=== PATIENT | female | born 1980 | race Caucasian/White ===

== ENCOUNTER → 2020-05-18 11:54 | Outpatient (CLI) | payer OTHER, SELFPAY ==
[2020-05-18 15:13] LABS: Erythrocyte Sedimentation Rate 5 mm/hr (0-20)
[2020-05-18 15:14] LABS: Absolute Lymphocyte Count 2.32 X10^3/uL (0.83-4.51); Absolute Neutrophil Count 3.4 X10^3/uL (2.0-7.7); Basophil# 0.03 X10^3/uL; Basophil% 0.5 % (0-1); Eosinophil# 0.09 X10^3/uL; Eosinophils% 1.4 % (0-5); Hematocrit 41.9 % (37-47); Hemoglobin 14.4 g/dL (12.0-15.0); Lymphocyte # 2.32 X10^3/ul (4.0); Lymphocyte % 37.3 % (19-41); Mean Corp Hgb Conc 34.4 g/dL (32-36); Mean Corpuscular Hgb 29.9 pg (27.0-32.0); Mean Corpuscular Volume 87.1 fL (81-99); Mean Platelet Vol. 10.4 fl (6.2-12.0); Monocyte# 0.39 X10^3/uL; Monocyte% 6.3 % (0-10); NRBC Flagged by Analyzer 0 % (0-5); Neutrophil # 3.37 X10^3/uL (2.7-7.7); Neutrophil % 54.2 % (47-70); Platelet Count 318 K/mm3 (150-450); RBC Distribution Width SD 38.1 fl (35.1-43.9); Red Blood Count 4.81 M/mm3 (4.2-5.4); White Blood Count 6.2 K/mm3 (4.4-11.0)
[2020-05-18 15:23] LABS: CRP < 2.90 mg/L (0.0-3.0)
[2020-05-20 16:56] LABS: EBV Acute VCA IgM < 36.0 U/mL (0.0-35.9); EBV Nuclear Antigen IgG 22.4 U/mL (0.0-17.9); EBV-VCA IgG > 600.0 U/mL (0.0-17.9)
== END ==
PROVIDERS: Family Provider Family Medicine; PCP Family Medicine; Visit Provider Family Medicine
DX: Z00.00 Encounter for general adult medical examination without abnormal findings (principal); R53.83 Other fatigue; J02.9 Acute pharyngitis, unspecified; Z82.49 Family history of ischemic heart disease and other diseases of the circulatory system
CPT/HCPCS: 36415; 85025; 85652; 86140; 86664; 86665

== ENCOUNTER → 2020-06-12 12:23 | Outpatient (CLI) | payer OTHER, SELFPAY ==
--- NOTE | 2020-06-12 12:26 | US_ITS ---
STUDY: THYROID ULTRASOUND REASON FOR EXAM: Female, 39 years old. Soreness of throat, globulus sensation TECHNIQUE: Ultrasound evaluation of the thyroid was performed with real-time and static weaver-scale imaging. COMPARISON: None. FINDINGS: RIGHT LOBE: The right lobe of the thyroid gland measures 6.5 x 1.9 x 2.0 cm. There is a homogeneous echotexture. There is a fairly well-defined 6 x 4 x 3 mm hypoechoic solid nodule in the posterolateral mid pole. A few other very small, generally well-defined hypoechoic foci are also noted within the gland, some of which may be vascular channels. LEFT LOBE: The left lobe of the thyroid gland measures 6.5 x 1.8 x 1.3 cm. There is a homogeneous echotexture. There are a few well-defined small hypoechoic lesions. One of the largest is near the junction to the thyroid isthmus, measuring 4 x 5 x 2 mm. This has an eccentric focal area of mild hyperechogenicity. ISTHMUS: The isthmus measures 3 mm. The regional lymph nodes are normal. US/Thyroid IMPRESSION: Elongated thyroid gland with occasional small hypoechoic lesions in each lobe, the larger measuring above. The largest in the right lobe satisfies criteria for a TIRADS 4 lesion (moderately suspicious and processes. However, due to its small size, a 6-12 month follow-up is advised to document stability. Electronically Signed: Adriel Shields MD at 16:02 EDT , Service support ,
== END ==
PROVIDERS: PCP Family Medicine; Referring Provider Family Medicine; Visit Provider Family Medicine
DX: R09.89 Other specified symptoms and signs involving the circulatory and respiratory systems (principal); R07.0 Pain in throat
CPT/HCPCS: 76536

== ENCOUNTER → 2020-12-15 08:40 | Outpatient (CLI) | payer OTHER, SELFPAY | PROVIDERS: PCP Family Medicine; Visit Provider Family Medicine | DX: U07.1 COVID-19 (principal) | CPT/HCPCS: 36415; 80053; 80061; 82306; 84432; 84436; 84439; 84443; 84481; 86376; 86769; 86800 ==

== ENCOUNTER 2023-02-06 13:47 | Emergency (ER) | payer OTHER, SELFPAY ==
[2023-02-06 13:49] VITALS: BP 186/92; PULSE 110; RESP 24; TEMP 36.1; O2SAT 100; BMI 25.9
--- NOTE | 2023-02-06 13:59 | EKG12_ITS ---
Test Reason : PALP Blood Pressure : / mmHG Vent. Rate : 112 BPM Atrial Rate : 112 BPM P-R Int : 138 ms QRS Dur : 082 ms QT Int : 344 ms P-R-T Axes : 071 067 026 degrees QTc Int : 469 ms Sinus tachycardia Possible Left atrial enlargement Borderline ECG Confirmed by KAI MILTON ([id number]), image editor TERRY ORDONEZ ([id number]) on 02/08/2023 1:16:41 PM Referred By: AR/CAMERON Confirmed By:KAI MILTON
--- NOTE | 2023-02-06 14:03 | EDS_ITS ---
HPI <BAILEY Pardo - Last Filed: 02/06/23 14:59> History of Present Illness Chief Complaint: General Illness Narrative Narrative: 32-year-old female with past medical history of anxiety states she had a few days of mild congestion. This morning she started to feel lightheaded and tingly all over. She has a dry mouth despite drinking plenty of water. She states on the way here she started to get anxious and had a heart fluttering. No chest pain or shortness of breath. No nausea, vomiting, abdominal pain, or diarrhea. No urinary symptoms. She is on no medications. [facility] <BAILEY Pardo - Last Filed: 02/06/23 14:59> [facility] Medical History (Updated 02/06/23 @ 16:[address] Tuan Christina DO) delivery delivered Home Medications NK 02/06/23 [History Last Taken Unknown] Allergy/AdvReac Type Severity Reaction Status Date / Time No Known Allergies Allergy Verified 02/06/23 14:03 Social History Smoking Status: Never smoker ROS <BAILEY Pardo - Last Filed: 02/06/23 14:59> ROS ED ROS Narrative Constitutional: Negative for fever, chills, malaise. ENT: Positive for rhinorrhea. CVS: Negative for palpitations. Negative for chest pain, syncope. Respiratory: Negative for shortness of breath, cough. GI: Negative for abdominal pain, nausea, vomiting, diarrhea. : Negative for dysuria, frequency. Neuro: Negative for headache, motor/sensory dysfunction. EXAM <BAILEY Pardo Last Filed: 02/06/23 14:59> Physical Exam Narrative Exam Narrative: CONST: Patient sitting in no acute distress. EYES: Normal inspection. ENT: Normal inspection, moist mucous membranes. NECK: Normal inspection. RESP: No respiratory distress, CTAB. CVS: Slightly tachycardic with regular rhythm, no murmur, no gallop. ABD: Soft and nontender, no guarding or rebound, nondistended. SKIN: Color normal, no rash, warm, dry, intact. EXTREMITIES: Normal appearance, no pedal edema. NEURO: Oriented x4. PSYCH: Normal affect. Const Vital Signs: 02/06/23 13:49 02/06/23 14:04 02/06/23 14:05 Temperature 97.0 F L Temperature Source Temporal Pulse Rate 110 H 113 H Respiratory Rate 24 H 16 Respiratory Effort Normal Non-Labored Respiratory Pattern Normal Blood Pressure 186/92 H 146/88 H Blood Pressure Mean 123 107 Pulse Ox 100 99 Oxygen Delivery Method Room Air Room Air 02/06/23 14:06 02/06/23 14:55 02/06/23 15:00 Temperature Temperature Source Pulse Rate 101 H 113 H Respiratory Rate 18 16 Respiratory Effort Normal Non-Labored Respiratory Pattern Blood Pressure 126/90 H 126/90 H Blood Pressure Mean 102 Pulse Ox 99 98 Oxygen Delivery Method Room Air <Dr. Tuan Christina DO - Last Filed: 02/06/23 16:14> Physical Exam Const Vital Signs: 02/06/23 13:49 02/06/23 14:04 02/06/23 14:05 Temperature 97.0 F L Temperature Source Temporal Pulse Rate 110 H 113 H Respiratory Rate 24 H 16 Respiratory Effort Normal Non-Labored Respiratory Pattern Normal Blood Pressure 186/92 H 146/88 H Blood Pressure Mean 123 107 Pulse Ox 100 99 Oxygen Delivery Method Room Air Room Air 02/06/23 14:06 02/06/23 14:55 02/06/23 15:00 Temperature Temperature Source Pulse Rate 101 H 113 H Respiratory Rate 18 16 Respiratory Effort Normal Non-Labored Respiratory Pattern Blood Pressure 126/90 H 126/90 H Blood Pressure Mean 102 Pulse Ox 99 98 Oxygen Delivery Method Room Air MDM <BAILEY Pardo - Last Filed: 02/06/23 14:59> [facility] Narrative Medical decision making narrative: Patient has nonspecific lightheadedness, dry mouth, generalized tingling. She has had recent upper respiratory symptoms. She appears well and nontoxic. Initially she was hypertensive but was rechecked and is 146/88. She is tachycardic around 113. Otherwise normal vital signs. Her medical exam is benign. CBC is within normal limits. BMP shows mild hypokalemia at 3.1 and she was given oral replacement. EKG is sinus tachycardia with no ectopy or ischemic changes. Both D-dimer and troponin are negative. COVID-19 test is negative and I suspect she has another viral upper respiratory infection. After IV fluids patient heart rate is in the 90s. BP 126/90. She is comfortable going home and following up with her primary care doctor but I told her to return for new or worsening symptoms. She was discharged in stable condition. History gathered from: Patient, friend at bedside Differential: Electrolyte abnormality, URI, COVID, arrhythmia, ACS, PE less likely with tachycardia were ruled out Lab Data Attestation: I reviewed the patient's lab results. Labs: Laboratory Results - last 24 hr 02/06/23 02/06/23 02/06/23 13:54 14:10 14:10 WBC 6.1 RBC 4.44 Hgb 13.7 Hct 38.4 MCV 86.5 MCH 30.9 MCHC 35.7 RDW Std Deviation 37.2 RDW Coeff of Robby 11.9 Plt Count 284 MPV 10.0 Immature Gran % (Auto) 0.200 Neut % (Auto) 60.9 Lymph % (Auto) 30.5 [place] % (Auto) 5.6 Eos % (Auto) 2.0 Baso % (Auto) 0.8 Absolute Neuts (auto) 3.7 Absolute Lymphs (auto) 1.85 Nucleated RBC % 0 D-Dimer Quant (PE/DVT) Sodium 138 Potassium 3.1 L Chloride 108 H Carbon Dioxide 26.0 Anion Gap 4 L BUN 11 Creatinine 0.85 Estim Creat Clear Calc 68.19 Est GFR (MDRD) Af Amer 94 Est GFR (MDRD) Non-Af 78 BUN/Creatinine Ratio 12.9 Glucose 109 H Calcium 9.3 Troponin I High Sens < 3 L Urine Color Straw Urine Clarity Sl. Cloudy Urine pH 7.0 Ur Specific [place] 1.005 Urine Protein Negative Urine Glucose (UA) Normal Urine Ketones Negative Urine Occult Blood 25 H Urine Nitrite Negative Urine Bilirubin Negative Urine Urobilinogen Normal Ur Leukocyte Esterase 25 H Urine RBC 0-5 SEEN Urine WBC 0-5 SEEN Ur Squamous Epith Cells 0-5 SEEN Urine Bacteria 0 SEEN Urine Mucus 0 SEEN Urine Test Negative 02/06/23 14:15 WBC RBC Hgb Hct MCV MCH MCHC RDW Std Deviation RDW Coeff of Robby Plt Count MPV Immature Gran % (Auto) Neut % (Auto) Lymph % (Auto) [place] % (Auto) Eos % (Auto) Baso % (Auto) Absolute Neuts (auto) Absolute Lymphs (auto) Nucleated RBC % D-Dimer Quant (PE/DVT) < 0.27 L Sodium Potassium Chloride Carbon Dioxide Anion Gap BUN Creatinine Estim Creat Clear Calc Est GFR (MDRD) Af Amer Est GFR (MDRD) Non-Af BUN/Creatinine Ratio Glucose Calcium Troponin I High Sens Urine Color Urine Clarity Urine pH Ur Specific [place] Urine Protein Urine Glucose (UA) Urine Ketones Urine Occult Blood Urine Nitrite Urine Bilirubin Urine Urobilinogen Ur Leukocyte Esterase Urine RBC Urine WBC Ur Squamous Epith Cells Urine Bacteria Urine Mucus Urine Test EKG Initial EKG: Attestation: I personally reviewed and interpreted this EKG as follows: Interpretation: No Acute Injury Pattern and Sinus Tachycardia Comments: Sinus tachycardia 112 bpm, no ectopy or ischemic changes <Dr. Tuan Christina, DO - Last Filed: 02/06/23 16:14> MDM MDM Narrative Medical decision making narrative: Patient has nonspecific lightheadedness, dry mouth, generalized tingling. She has had recent upper respiratory symptoms. She appears well and nontoxic. Initially she was hypertensive but was rechecked and is 146/88. She is tachycardic around 113. Otherwise normal vital signs. Her medical exam is benign. CBC is within normal limits. BMP shows mild hypokalemia at 3.1 and she was given oral replacement. EKG is sinus tachycardia with no ectopy or ischemic changes. Both D-dimer and troponin are negative. COVID-19 test is negative and I suspect she has another viral upper respiratory infection. After IV fluids patient heart rate is in the 90s. BP 126/90. She is comfortable going home and following up with her primary care doctor but I told her to return for new or worsening symptoms. She was discharged in stable condition. History gathered from: Patient, friend at bedside Differential: Electrolyte abnormality, URI, COVID, arrhythmia, ACS, PE less likely with tachycardia were ruled out Interventions / MDM: Differential diagnosis: Palpitations, cardiac dysrhythmia, viral syndrome Diagnosis considered but do not suspect: Pulmonary embolism, however D-dimer negative. ACS, however EKG with no signs of ischemia and negative troponin. My EKG interpretation: Sinus rate of 112, no ST or T wave changes. Imaging independently reviewed and interpreted by myself: N/A External documents reviewed: N/A Test considered but not ordered:N/A ED course: Attending note: Patient seen and evaluated with ticket writer. I perform my own [id number] evaluation. I agree with the plan of work-up. Recent sinus congestion today just not feeling well some back discomfort states intermittent chest discomfort past month mother [place] low 50s. Denies any chest pains denies recent vomiting or diarrhea. States at work paresthesias. No weakness. No recent travel surgery or immobilizations. No history of PE or DVT. Heart was tachycardic respirations. Symmetric. EKG sinus tachycardia, low risk Wells criteria for PE D-dimer negative. Cardiac work-up negative. Labs significant for potassium of 3.1. Oral replacement was given. She given fluids for tachycardia, heart rate was improved on reevaluation. Patient reassured and discharged with outpatient follow-up. Re-evaluation: stable Disposition discussed with patient/family/significant other: Patient Case discussed with consulting clinician: N/A Lab Data Labs: Laboratory Results - last 24 hr 02/06/23 02/06/23 02/06/23 13:54 14:10 14:10 WBC 6.1 RBC 4.44 Hgb 13.7 Hct 38.4 MCV 86.5 MCH 30.9 MCHC 35.7 RDW Std Deviation 37.2 RDW Coeff of Robby 11.9 Plt Count 284 MPV 10.0 Immature Gran % (Auto) 0.200 Neut % (Auto) 60.9 Lymph % (Auto) 30.5 [place] % (Auto) 5.6 Eos % (Auto) 2.0 Baso % (Auto) 0.8 Absolute Neuts (auto) 3.7 Absolute Lymphs (auto) 1.85 Nucleated RBC % 0 D-Dimer Quant (PE/DVT) Sodium 138 Potassium 3.1 L Chloride 108 H Carbon Dioxide 26.0 Anion Gap 4 L BUN 11 Creatinine 0.85 Estim Creat Clear Calc 68.19 Est GFR (MDRD) Af Amer 94 Est GFR (MDRD) Non-Af 78 BUN/Creatinine Ratio 12.9 Glucose 109 H Calcium 9.3 Troponin I High Sens < 3 L Urine Color Straw Urine Clarity Sl. Cloudy Urine pH 7.0 Ur Specific [place] 1.005 Urine Protein Negative Urine Glucose (UA) Normal Urine Ketones Negative Urine Occult Blood 25 H Urine Nitrite Negative Urine Bilirubin Negative Urine Urobilinogen Normal Ur Leukocyte Esterase 25 H Urine RBC 0-5 SEEN Urine WBC 0-5 SEEN Ur Squamous Epith Cells 0-5 SEEN Urine Bacteria 0 SEEN Urine Mucus 0 SEEN Urine Test Negative 02/06/23 14:15 WBC RBC Hgb Hct MCV MCH MCHC RDW Std Deviation RDW Coeff of Robby Plt Count MPV Immature Gran % (Auto) Neut % (Auto) Lymph % (Auto) [place] % (Auto) Eos % (Auto) Baso % (Auto) Absolute Neuts (auto) Absolute Lymphs (auto) Nucleated RBC % D-Dimer Quant (PE/DVT) < 0.27 L Sodium Potassium Chloride Carbon Dioxide Anion Gap BUN Creatinine Estim Creat Clear Calc Est GFR (MDRD) Af Amer Est GFR (MDRD) Non-Af BUN/Creatinine Ratio Glucose Calcium Troponin I High Sens Urine Color Urine Clarity Urine pH Ur Specific [place] Urine Protein Urine Glucose (UA) Urine Ketones Urine Occult Blood Urine Nitrite Urine Bilirubin Urine Urobilinogen Ur Leukocyte Esterase Urine RBC Urine WBC Ur Squamous Epith Cells Urine Bacteria Urine Mucus Urine Test Discharge Plan Triage Chief Complaint: General Illness ED Midlevel Provider: Chrystal Bone ED Provider: Tuan Christina Dx/Rx/DC Orders Clinical Impression: Lightheaded, URI (upper respiratory infection), Hypokalemia, Palpitations Instructions: ED Dizziness, Uncertain Cause Prescriptions: No Action NK Primary Care Provider: Robbin Mclaughlin Referrals: Robbin Mclaughlin, [Primary Care Provider] - Activity Restrictions/Additional Instructions: Today all of your testing looks normal. I recommend following up with your primary care doctor this week but if you develop new or worsening symptoms return to the ER. Disposition Disposition: Home, Self Care Discharge Date/Time: 02/06/23 15:07
[2023-02-06 14:04] VITALS: BP 146/88; PULSE 113; RESP 16; O2SAT 99
[2023-02-06 14:16] LABS: Bacteria 0 SEEN /hpf (None Seen); Mucous, Urine 0 SEEN /hpf (<or=2+)
[2023-02-06 14:19] LABS: Absolute Lymphocyte Count 1.85 X10^3/uL (0.83-4.51); Absolute Neutrophil Count 3.7 X10^3/uL (2.0-7.7); Basophil# 0.05 X10^3/uL; Basophil% 0.8 % (0-1); Eosinophil# 0.12 X10^3/uL; Hematocrit 38.4 % (37-47); Hemoglobin 13.7 g/dL (12.0-15.0); Lymphocyte # 1.85 X10^3/ul (0.83-4.51); Lymphocyte % 30.5 % (19-41); Mean Corp Hgb Conc 35.7 g/dL (32-36); Mean Corpuscular Hgb 30.9 pg (27.0-32.0); Mean Corpuscular Volume 86.5 fL (81-99); Monocyte# 0.34 X10^3/uL; Monocyte% 5.6 % (0-10); NRBC Flagged by Analyzer 0 % (0-5); Neutrophil # 3.69 X10^3/uL (2.7-7.7); Neutrophil % 60.9 % (47-70); Platelet Count 284 K/mm3 (150-450); RBC Distribution Width CV 11.9 % (11.6-14.6); RBC Distribution Width SD 37.2 fl (35.1-43.9); Red Blood Count 4.44 M/mm3 (4.2-5.4); White Blood Count 6.1 K/mm3 (4.4-11.0)
[2023-02-06 14:32] LABS: Color, Urine Straw (Yellow); Glucose, Dipstick Normal (Normal); Ketone-Dipstick Negative (Negative); Leukocyte Esterase-Dipstick 25 /ul (Negative); Nitrite-Dipstick Negative (Negative); Occult Blood-Urine 25 /ul (Negative); Protein-Dipstick Negative (Negative); Specific Gravity, Urine 1.005 (1.002-1.030); Urine Bilirubin Dipstick Negative (Negative); Urine Clarity Sl. Cloudy (Clear); Urine Urobilinogen Normal (Normal)
[2023-02-06 14:39] LABS: Anion Gap 4 (5-15); BUN 11 mg/dL (7-18); BUN/Creat Ratio 12.9 RATIO (10-20); Calcium,Total 9.3 mg/dL (8.5-10.1); Chloride 108 mmol/L (98-107); Creatinine, Serum 0.85 mg/dL (0.55-1.02); EST Glomerular Filtration Rate 78 mL/min (>60); Est Glom Filt Rate - Afr Amer 94 mL/min (>60); Estimated Creatinine Clearance 68.19 ml/min; Glucose 109 mg/dL (74-106); Potassium 3.1 mmol/L (3.5-5.1); Sodium Level 138 mmol/L (136-145); Troponin-I HS < 3 pg/mL (3.0-54.0)
[2023-02-06 14:41] LABS: D-Dimer Quantitative (DVT/PE) < 0.27 FEU/ug/m (0.27-0.49)
[2023-02-06 14:43] LABS: Internal QC Validated? YES +Cl - CLEAR BKGD; Pregnancy, Urine Negative Negative; Red Blood Cells-Urine 0-5 SEEN /hpf (0-5); Squamous Epithelial Cells - UA 0-5 SEEN /hpf (5-10); White Blood Cells 0-5 SEEN /hpf (0-5)
[2023-02-06 14:55] VITALS: BP 126/90; PULSE 101; RESP 18; O2SAT 99
[2023-02-06] MEDS: Potassium Chloride Oral Tablet 20 MEQ 40 MEQ PO (14:57)
[2023-02-06 15:00] VITALS: BP 126/90; PULSE 113; RESP 16; O2SAT 98
== END 2023-02-06 15:07 | disposition home or self-care (01) ==
PROVIDERS: Physician Assistant; Emergency Provider Emergency Medicine; PCP Family Medicine; Visit Provider Emergency Medicine
DX: R42 Dizziness and giddiness (principal); J06.9 Acute upper respiratory infection, unspecified; E87.6 Hypokalemia; R00.2 Palpitations
CPT/HCPCS: 80048; 81001; 81025; 84484; 85025; 85379; 87811; 93005; 99284; J7040; A4216

== ENCOUNTER → 2023-09-12 | Outpatient (CLI) | payer OTHER, SELFPAY ==
[2023-09-12 12:21] LABS: Absolute Lymphocyte Count 2.04 X10^3/uL (0.83-4.51); Absolute Neutrophil Count 3.2 X10^3/uL (2.0-7.7); Basophil# 0.03 X10^3/uL; Basophil% 0.5 % (0-1); Eosinophil# 0.05 X10^3/uL; Eosinophils% 0.9 % (0-5); Hematocrit 41.7 % (37-47); Hemoglobin 14.6 g/dL (12.0-15.0); Lymphocyte # 2.04 X10^3/ul (0.83-4.51); Lymphocyte % 35.7 % (19-41); Mean Corpuscular Hgb 30.5 pg (27.0-32.0); Mean Corpuscular Volume 87.1 fL (81-99); Mean Platelet Vol. 10.7 fl (6.2-12.0); Monocyte# 0.33 X10^3/uL; Monocyte% 5.8 % (0-10); NRBC Flagged by Analyzer 0 % (0-5); Neutrophil # 3.18 X10^3/uL (2.7-7.7); Neutrophil % 55.7 % (47-70); Platelet Count 328 K/mm3 (150-450); RBC Distribution Width CV 12.2 % (11.6-14.6); RBC Distribution Width SD 38.5 fl (35.1-43.9); Red Blood Count 4.79 M/mm3 (4.2-5.4); White Blood Count 5.7 K/mm3 (4.4-11.0)
[2023-09-12 12:53] LABS: ALB/GLOB Ratio 1.1 RATIO (0.9-2.4); AST(SGOT) 16 U/L (15-37); Alanine Aminotransfer ALT/SGPT 26 U/L (13-56); Albumin, Serum 4.2 g/dL (3.2-5.0); Alkaline Phosphatase 63 U/L (45-117); Anion Gap 6 (5-15); BUN 10 mg/dL (7-18); BUN/Creat Ratio 11.6 RATIO (10-20); Calcium,Total 9.3 mg/dL (8.5-10.1); Chloride 104 mmol/L (98-107); Cholesterol 228 mg/dL (200); Creatinine, Serum 0.86 mg/dL (0.55-1.02); EST Glomerular Filtration Rate 76 mL/min (>60); Est Glom Filt Rate - Afr Amer 92 mL/min (>60); Globulin 3.8 g/dL (2.2-4.2); Glucose 98 mg/dL (74-106); High Density Lipoprotein 47 mg/dL; Potassium 3.2 mmol/L (3.5-5.1); Sodium Level 138 mmol/L (136-145); T4 Free Direct 1.39 ng/dL (0.76-1.46); Thyroid Stim Hormone (TSH) 1.37 uIU/mL (0.358-3.74); Triglycerides 77 mg/dL; Very Low Density Lipoprotein 15 mg/dL (5-40)
== END | disposition home or self-care (01) ==
LOC: BFHLAB 08:41
PROVIDERS: PCP Family Medicine; Visit Provider Family Medicine
DX: Z00.00 Encounter for general adult medical examination without abnormal findings (principal); R00.2 Palpitations
CPT/HCPCS: 36415; 80053; 80061; 84439; 84443; 85025

== ENCOUNTER 2024-10-17 09:26 | Emergency (ER) | payer OTHER, SELFPAY ==
[2024-10-17 09:26] VITALS: BP 129/85; PULSE 106; RESP 20; TEMP 37.1; O2SAT 97; BMI 24.5
--- NOTE | 2024-10-17 10:25 | RAD_ITS ---
STUDY: X-RAY CHEST REASON FOR EXAM: Female, 44 years old. cough TECHNIQUE: PA and lateral views of the chest. COMPARISON: None. FINDINGS: The lungs are clear and expanded. There is no demonstrated pleural abnormality. Normal size heart. Normal mediastinum and bouchra. Normal visualized pulmonary arteries. Normal visualized aortic arch and descending thoracic aorta. Normal visualized thoracic spine. Normal visualized ribs, clavicles, and shoulders. There is no demonstrated abnormality of the visualized soft tissue structures of the upper abdomen. RAD/Chest PA and Lateral IMPRESSION: Normal x-ray examination of the chest. Electronically Signed: Harpal Hemphill MD at 10:40 [facility] ,
[2024-10-17 10:27] VITALS: O2SAT 98
--- NOTE | 2024-10-17 10:35 | EX.ED.DYSGE1 ---
HPI History of Present Illness Chief Complaint: Cough Informant: patient Narrative Narrative: Waxing waning cough for 3 weeks. Subjective fevers. Posttussive emesis. Seen [facility] urgent care a week ago chest x-ray negative. Placed on steroids and cough suppressants no relief. Started using humidifier now able to cough stuff up. With coughing had some low back pain. Took Motrin this morning. No tobacco history. States did see [facility] she is checking her pulse ox sometimes to go down to 90%. No asthma or COPD history. No recent travel or surgeries. No history of PE or DVT. Reports decreased p.o. intake due to decreased appetite. Prior similar symptoms: Yes PFSH PFSH Medical History delivery delivered Home Medications ?Medication ?Instructions ?Recorded ?Last Taken ?Type NK 02/06/23 Unknown History Allergy/AdvReac Type Severity Reaction Status Date / Time No Known Allergies Allergy Verified 10/17/24 09:27 Social History Smoking Status: Never smoker ROS ROS ED Constitutional Constitutional ED: Reports fever(s); Denies chills or sweats ENT ENT ED: Denies sore throat Cardiovascular Cardiovascular: Denies chest pain, leg edema, palpitations or racing heartbeat Respiratory/Chest Respiratory/Chest: Reports cough; Denies dyspnea or dyspnea on exertion Gastrointestinal Gastrointestinal: Denies abdominal pain, diarrhea, nausea or vomiting Genitourinary Genitourinary ED: Denies dysuria, hematuria or urinary frequency Musculoskeletal Musculoskeletal: Reports back pain; Denies extremity pain or neck pain Integumentary Denies rash or wounds Neurologic Neurologic: Denies headache(s), paresthesias or weakness EXAM Physical Exam Const Vital Signs: 10/17/24 09:26 10/17/24 10:27 10/17/24 12:17 Temperature 98.7 F 97.2 F L Temperature Source Oral Pulse Rate 106 H 82 Respiratory Rate 20 H 17 Respiratory Effort Normal Non-Labored Respiratory Depth Normal Respiratory Pattern Normal Blood Pressure 129/85 H 135/69 H Blood Pressure Mean 99 91 Pulse Ox 97 93 Oxygen Delivery Method Room Air Room Air Positive well nourished and well developed General Appearance ED: well developed and NAD HEENT Reports TM's clear and moist mucous membranes normocephalic and atraumatic Tympanic Membrane ED: Yes TM's clear Eyes General Eye ED: Yes normal appearance of both eyes Neck full ROM Chest Wall Chest: Negative for tenderness Resp normal respiratory effort and normal air movement Effort and Inspection: symmetric chest movement; Negative for respiratory distress Cardio regular rate, regular rhythm and no murmurs Peripheral Pulses: pulses 2+ throughout GI normal to inspection, nondistended, normoactive bowel sounds and non-tender Palpation: Negative for guarding or rebound tenderness present Extremity normal to inspection General Extremety ED: Negative for edema or tenderness General Extremity: Negative for edema Neuro oriented x3 and no sensory deficits noted Sensorium / Orientation: awake and alert Skin no rashes or lesions noted and no wounds MDM MDM MDM Narrative Medical decision making narrative: Interventions / MDM: Differential diagnosis: Bronchitis, viral URI Diagnosis considered but do not suspect: Pneumonia however x-ray negative. My EKG interpretation: N/A Imaging independently reviewed and interpreted by myself: 2 view chest x-ray: No acute process External documents reviewed: N/A Test considered but not ordered:N/A ED course: Patient recurrent illness with cough symptoms. Pulse ox stable in the ED. Discussed obtaining COVID flu RSV chest x-ray due to new symptoms again. Results negative. Vitals remained stable reevaluation. She was ambulated with a pulse ox that stable. Discussed URI symptoms. Discussed adjunct therapies with humidifier and vapor rubs. Outpatient follow-up. All questions were answered. Re-evaluation: stable Disposition discussed with patient/family/significant other: Patient Case discussed with consulting clinician: N/A This note was generated with Cin[employer] dictation software. It may contain incorrect words, spelling, and punctuation that were not noted in checking the note before signing. Radiography Diagnostic Testing: Clinical Impression(s) from Imaging Studies Chest X-Ray 10/17/24 10:25 IMPRESSION: Normal x-ray examination of the chest. Electronically Signed: Harpal Hemphill MD at 10:40 EST , Discharge Plan Triage Chief Complaint: Cough ED Provider: Tuan Christina Dx/Rx/DC Orders Clinical Impression: URI (upper respiratory infection) Instructions: ED URI, Viral, No Abx (Adult) Prescriptions: No Action NK Primary Care Provider: Robbin Mclaughlin Referrals: Robbin Mclaughlin, [Primary Care Provider] - Activity Restrictions/Additional Instructions: Chest x-ray negative. COVID, flu, RSV negative. Use adjunct therapies will continue humidifier vapor rubs as discussed. Your oxygen improved with walking. Follow-up with your doctor. Print Language: Turkish Disposition Disposition: Home, Self Care Discharge Date/Time: 10/17/24 12:17
[2024-10-17 11:59] VITALS: O2SAT 91
[2024-10-17 12:17] VITALS: BP 135/69; PULSE 82; RESP 17; TEMP 36.2; O2SAT 93
== END 2024-10-17 12:17 | disposition home or self-care (01) ==
PROVIDERS: Emergency Provider Emergency Medicine; PCP Family Medicine; Visit Provider Emergency Medicine
DX: J06.9 Acute upper respiratory infection, unspecified (principal); M54.50 Low back pain, unspecified
CPT/HCPCS: 71046; 87631; 99282

== ENCOUNTER → 2024-11-05 | Outpatient (CLI) | payer OTHER, SELFPAY ==
[2024-11-05 12:16] LABS: Absolute Lymphocyte Count 1.85 X10^3/uL (0.83-4.51); Absolute Neutrophil Count 3.1 X10^3/uL (2.0-7.7); Basophil# 0.04 X10^3/uL; Basophil% 0.7 % (0-1); Eosinophil# 0.09 X10^3/uL; Eosinophils% 1.6 % (0-5); Hematocrit 41.2 % (37-47); Hemoglobin 13.8 g/dL (12.0-15.0); Lymphocyte # 1.85 X10^3/ul (0.83-4.51); Lymphocyte % 33.5 % (19-41); Mean Corp Hgb Conc 33.5 g/dL (32-36); Mean Corpuscular Hgb 30.3 pg (27.0-32.0); Mean Corpuscular Volume 90.5 fL (81-99); Mean Platelet Vol. 10.2 fl (6.2-12.0); Monocyte# 0.39 X10^3/uL; Monocyte% 7.1 % (0-10); NRBC Flagged by Analyzer 0 % (0-5); Neutrophil # 3.14 X10^3/uL (2.7-7.7); Neutrophil % 56.7 % (47-70); Platelet Count 400 K/mm3 (150-450); RBC Distribution Width CV 12.5 % (11.6-14.6); RBC Distribution Width SD 40.9 fl (35.1-43.9); Red Blood Count 4.55 M/mm3 (4.2-5.4); White Blood Count 5.5 K/mm3 (4.4-11.0)
[2024-11-05 13:00] LABS: ALB/GLOB Ratio 0.9 RATIO (0.9-2.4); AST(SGOT) 14 U/L (15-37); Alanine Aminotransfer ALT/SGPT 18 U/L (13-56); Albumin, Serum 3.7 g/dL (3.2-5.0); Alkaline Phosphatase 67 U/L (45-117); Anion Gap 6 (5-15); BUN 9 mg/dL (7-18); BUN/Creat Ratio 11.7 RATIO (10-20); Chloride 105 mmol/L (98-107); Cholesterol 202 mg/dL (200); Creatinine, Serum 0.77 mg/dL (0.55-1.02); EST Glomerular Filtration Rate 86 mL/min (>60); Est Glom Filt Rate - Afr Amer 105 mL/min (>60); Globulin 3.9 g/dL (2.2-4.2); Glucose 92 mg/dL (74-106); High Density Lipoprotein 44 mg/dL; Potassium 3.5 mmol/L (3.5-5.1); Protein, Total 7.6 g/dL (6.4-8.2); Sodium Level 138 mmol/L (136-145); Triglycerides 79 mg/dL; Very Low Density Lipoprotein 16 mg/dL (5-40)
[2024-11-05 13:03] LABS: Vitamin D,25 Hydroxy 24.1 ng/mL
== END | disposition home or self-care (01) ==
PROVIDERS: PCP Family Medicine; Visit Provider Family Medicine
DX: Z00.00 Encounter for general adult medical examination without abnormal findings (principal); E78.5 Hyperlipidemia, unspecified; E04.1 Nontoxic single thyroid nodule; E55.9 Vitamin D deficiency, unspecified
CPT/HCPCS: 36415; 80053; 80061; 82306; 84443; 85025

== ENCOUNTER → 2024-11-11 | Outpatient (CLI) | payer OTHER, SELFPAY ==
--- NOTE | 2024-11-11 12:51 | US_ITS ---
STUDY: THYROID ULTRASOUND REASON FOR EXAM: Female, 44 years old. HX NODULE R SIDE TECHNIQUE: Ultrasound evaluation of the thyroid was performed with real-time and static weaver-scale imaging. COMPARISON: Comparison is made with prior study dated June 12, 2020. FINDINGS: RIGHT LOBE: The right lobe of the thyroid gland is enlarged and measures 6.2 cm x 1.9 cm x 2.2 cm. There is a homogeneous echotexture. There is a 5 mm x 3 mm x 2 mm solid hypoechoic nodule in the posterolateral aspect of the midpole of the right lobe. Stable 5 mm x 4 mm x 2 mm hypoechoic solid nodule in the lower pole. LEFT LOBE: The left lobe of the thyroid gland is enlarged and measures 6 cm x 1.7 cm x 1.4 cm. There is a homogeneous echotexture. There is an 8 mm x 7 mm x 2 mm cyst. ISTHMUS: The isthmus measures 4 mm. The regional lymph nodes are normal. US/Thyroid IMPRESSION: Enlarged thyroid. Stable bilateral nodules. Electronically Signed: Cade Bunn MD at 14:55 EST ,
== END | disposition home or self-care (01) ==
LOC: US 12:46
PROVIDERS: PCP Family Medicine; Referring Provider Family Medicine; Visit Provider Family Medicine
DX: E04.1 Nontoxic single thyroid nodule (principal)
CPT/HCPCS: 76536